=== PATIENT | female | born 1995 | race African-American/Black ===

== ENCOUNTER 2017-08-28 15:10 | Emergency (ER) | payer OTHER ==
[~2017-08-28] VITALS: Ht 167.6 cm; Wt 80.0 kg
[2017-08-28 15:15] VITALS: TEMP 36.8; Ht 167.6 cm; Wt 80.0 kg
--- NOTE | 2017-08-28 15:44 | EMERGENCY ROOM VISIT NOTE ---
History Report prepared by Tracy: Renato Haddad Under the Supervision of: Dr. Antwon Abdul M.D. First contact with patient: 15:17 Chief Complaint: CHEST PAIN Stated Complaint: CHEST PAIN, LIGHTHEADED, TACHYCARDIA Nursing Triage Summary: pt arrives via ALS for sudden onset of chest pain at rest per EMS pr was sitting at the library she developed sudden onset of chest pain with numbness down her left arm to her back she was lightheaded and dizzy at the time per EMS she was also tachycardic Per EMS pt reports HX of anxiety but this feels different pt arrives talking on phone to mother History of Present Illness The patient is a 21 year old female who presents to the Emergency Room with complaints of sudden onset chest pain occurring prior to arrival. She states that she is currently in minimal discomfort. The patient states that she was in the library studying for her exam tomorrow, and she got this chest pain which is radiating into her back. Additionally, she felt like she was going to faint. The patient states that she gets panic attacks regularly, and she is on medications for anxiety, and she is currently stressed. The patient states that this was similar to her panic attacks, though this was worse than normal. She denies any abdominal pain, diarrhea, pain with urination, cough, congestion, fevers, and chills. The patient notes that she has never been to the ED for her panic attacks in the past. The patient denies any drug use or chance of . Source of History: patient Onset: prior to arrival Position: chest Symptom Intensity: minimal Timing: other (sudden onset) Associated Symptoms: + back pain, No fevers, No chills, No cough, No diarrhea, No urinary symptoms Review of Systems See HPI for pertinent positives and negatives. A total of ten systems were reviewed and were otherwise negative. Past Medical & Surgical Medical Problems: (1) Anxiety (2) Panic attack Social History Smoking Status: Never Smoker Marital Status: single Housing Status: lives with roommate Occupation Status: [employer] student Current/Historical Medications Scheduled Venlafaxine Hcl (Effexor Extended Rel), 150 MG PO DAILY Allergies Coded Allergies: No Known Allergies (Unverified , 08/28/17) Physical Exam Vital Signs Date Time Temp Pulse Resp B/P (MAP) Pulse Ox O2 Delivery O2 Flow Rate FiO2 08/28/17 17:12 88 16 115/76 98 08/28/17 16:14 85 16 111/75 99 Room Air 08/28/17 15:15 36.8 95 16 110/74 98 Room Air 08/28/17 15:13 98 Room Air Physical Exam GENERAL: Awake, alert, anxious-appearing, in no distress HENT: Normocephalic, atraumatic. Oropharynx unremarkable. EYES: Normal conjunctiva. Sclera non-icteric. NECK: Supple. No nuchal rigidity. FROM. No JVD. RESPIRATORY: Clear to auscultation. CARDIAC: Regular rate, normal rhythm. Extremities warm and well perfused. Pulses equal. ABDOMEN: Soft, non-distended. No tenderness to palpation. No rebound or guarding. No masses. RECTAL: Deferred. MUSCULOSKELETAL: Chest examination reveals no tenderness. The back is symmetrical on inspection without obvious abnormality. There is no CVA tenderness to palpation. No joint edema. LOWER EXTREMITIES: Calves are equal size bilaterally and non-tender. No edema. No discoloration. NEURO: Normal sensorium. No sensory or motor deficits noted. SKIN: No rash or jaundice noted. Medical Decision & Procedures ECG Indication: chest pain Rate (beats per minute): 91 Rhythm: normal sinus Findings: no acute ischemic change, other (Normal axis) ED Course 151: The patient was evaluated in room B4. A complete history and physical exam was performed. 1650: I reevaluated the patient. Discussed results and discharge instructions: She verbalized understanding and agreement. The patient is ready for discharge. Medical Decision I reviewed the patient's past medical history, medications, and the nursing notes as described above. Differential diagnoses include: panic attack, dehydration, and electrolyte abnormality. The patient is a 21-year-old woman with a past medical history of anxiety and frequent panic attacks who presents emergency Department with episode of chest pain and shortness of breath when she was in the library. History of present illness. On arrival the patient appears anxious but in no acute distress, she is afebrile with stable vital signs. Reports chest tightness mostly resolved. During my interview with the patient the mother wished to discuss the episode with me explaining that these episodes are frequent for the patient and likely due to her anxiety and panic attacks and did not feel she required any significant evaluation. Moreover her EKG is unremarkable. Given these episodes are typical for the patient, I agree that additional workup is not indicated at this time. Case management assisting to help establish follow-up with [facility]. Patient and mother reports the patient has had numerous triggers including her pending exams as well as with her current living situation. Thus, patient will also plan to return to her home town in the next couple of days to stay with her mother and f/u with her pcp. Findings and plan for follow-up reviewed with patient. Patient agreeable and d/c'd per discharge instructions. Medication Reconcilliation Current Medication List: was personally reviewed by me Blood Pressure Screening Patient's blood pressure: Normal blood pressure Impression Primary Impression: Panic attack Scribe Attestation The scribe's documentation has been prepared under my direction and personally reviewed by me in its entirety. I confirm that the note above accurately reflects all work, treatment, procedures, and medical decision making performed by me. Departure Information Dispostion Home / Self-Care Forms HOME CARE DOCUMENTATION FORM, IMPORTANT VISIT INFORMATION Patient Instructions ED Panic Attack, [facility] Additional Instructions Please follow up with your primary care physician at home in the next 1-3 days for re-evaluation as well as with the [facility] program here, which our transplant case manager will help facilitate an appointment. You likely had a panic attack. Otherwise, your exam and EKG did not show signs of an emergent condition at this time. Return to the emergency department for worsening symptoms as described in the accompanying instructions.
[2017-08-28] MEDS ORDERED: VENL150C56 PO (16:34)
[2017-08-28 17:12] VITALS: BP 115/76; PULSE 88; O2SAT 98
== END 2017-08-28 17:12 | disposition home or self-care (01) ==
LOC: C.EDB 15:17
DX: F41.0 Panic disorder [episodic paroxysmal anxiety] (principal)